=== PATIENT | male | born 1955 | race Caucasian/White ===

== ENCOUNTER 2016-09-19 13:42 | Emergency (ER) | payer OTHER ==
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
[2016-09-19] MEDS ORDERED: Polymyx/Trimethoprim OPTH* 10 ML BTL RIGHT EYE ONE (15:03)
[2016-09-19 15:14] VITALS: BP 131/98
== END 2016-09-19 15:13 | disposition home or self-care (01) ==
LOC: ED 13:42
DX: T15.91XA Foreign body on external eye, part unspecified, right eye, initial encounter (principal); X58.XXXA Exposure to other specified factors, initial encounter; Y93.9 Activity, unspecified; Y92.9 Unspecified place or not applicable; Y99.9 Unspecified external cause status
CPT/HCPCS: 99282

== ENCOUNTER 2018-12-14 10:17 | Emergency (ER) | payer OTHER ==
[2018-12-14 10:38] VITALS: BP 133/81
--- NOTE | 2018-12-14 11:04 | UC ---
Lower Extremity/Ankle HPI - HPI Summary HPI Summary: R large toe pain after heavy item made of metal dropped onto foot last night. It started to bleed, he is on plavix. When he awoke today it was more painful and swollen with a blood blister. denies heel pain, fever. tetanus was given approx 10yrs ago - History of Current Complaint Chief Complaint: UCUpperExtremity Stated Complaint: FOOT COMPLAINT Time Seen by Provider: 12/14/18 10:59 Hx Obtained From: Patient Pain Intensity: 4 Pain Scale Used: 0-10 Numeric Aggravating Factor(s): Nothing Alleviating Factor(s): Nothing - Allergies/Home Medications Allergies/Adverse Reactions: Allergies Allergy/AdvReac Type Severity Reaction Status Date / Time No Known Allergies Allergy Verified 12/14/18 10:38 PMH/Surg Hx/FS Hx/Imm Hx Previously Healthy: Yes Cardiovascular History: Cardiac Disease GI/ History: Gastroesophageal Reflux - Surgical History Surgical History: Yes Surgery Procedure, Year, and Place: POLYPECTOMY - 2 BENIGN POLYS REMOVED IN 2007. TONSILLECTOMY 1966. 2 stents - Family History Known Family History: Positive: Cardiac Disease - Social History Alcohol Use: None Substance Use Type: None Smoking Status (MU): Former Smoker Type: Cigarettes Amount Used/How Often: 1ppd Length of Time of Smoking/Using Tobacco: 20yrs Have You Smoked in the Last Year: No When Did the Patient Quit Smoking/Using Tobacco: 2.5 years ago - Immunization History Most Recent Influenza Vaccination: FEB 2014 Most Recent Tetanus Shot: UP TO DATE Most Recent Pneumonia Vaccination: NEVER Review of Systems All Other Systems Reviewed And Are Negative: Yes Constitutional: Negative: Fever Skin: Negative: Rash Musculoskeletal: Positive: Arthralgia - R toe Neurological: Negative: Weakness, Paresthesia, Numbness Physical Exam Triage Information Reviewed: Yes Appearance: Well-Appearing Vital Signs: Initial Vital Signs Temp 98.9 F 12/14/18 10:33 Pulse 104 12/14/18 10:33 Resp 18 12/14/18 10:33 BP 133/81 12/14/18 10:33 Pulse Ox 100 12/14/18 10:33 Vital Signs Reviewed: Yes Respiratory Exam: Normal Cardiovascular Exam: Normal Musculoskeletal: Positive: Edema @ - R large toe Neurological: Positive: Alert Skin: Positive: Other - R large toe hematoma, open areas at base of nail bed Diagnostics - Radiology No standard instances Radiology Interpretation Completed By: Radiologist Summary of Radiographic Findings: REPORT AND IMPRESSION: #. Mildly comminuted transverse fracture through the tuft of the distal phalanx with up. to 0.2 cm distal and plantar displacement. Overlying soft tissue swelling without. conspicuous subcutaneous emphysema. #. Normal articular alignment. Lower Extremity Course/Dx - Course Course Of Treatment: R large toe pain after having heavy metal object fall on it. Pt. reports pain thats relieved by tylenol, declined anything stronger. on xray REPORT AND IMPRESSION: #. Mildly comminuted transverse fracture through the tuft of the distal phalanx with up to 0.2 cm distal and plantar displacement. Overlying soft tissue swelling without conspicuous subcutaneous emphysema. #. Normal articular alignment. Reviewed case with Dr. Osei and it was suggested pt be seen on Sun. We were able to clean wounds, achieve hemostasis, apply a betadine dressing, antibx rx' d and foot placed in post op shoe. vascularly intact, no neuro deficits. Tetanus given today. - Differential Dx/Diagnosis Differential Diagnosis/HQI/PQRI: Contusion, Dislocation, Fracture (Closed), Subungual Hematoma Provider Diagnosis: Comminuted fracture Discharge - Sign-Out/Discharge Documenting (check all that apply): Patient Departure All imaging exams completed and their final reports reviewed: Yes - Discharge Plan Condition: Good Disposition: HOME Prescriptions: Cephalexin CAP* [Keflex CAP*] 500 mg PO BID 10 Days #20 cap Patient Education Materials: Toe Fracture (ED) Referrals: Scot Osei MD [Medical Doctor] - Additional Instructions: Please call ORTHOPEDICS on Sunday - Billing Disposition and Condition Condition: GOOD Disposition: Home
[2018-12-14] MEDS ORDERED: Tetan/Diph/Pertus SYR(Tdap)* 0.5 ML SYR(BOOSTRIX) use SYR contains LATEX IM ONE (12:21)
== END 2018-12-14 12:46 | disposition home or self-care (01) ==
LOC: UCEAST 10:17
DX: S92.421A Displaced fracture of distal phalanx of right great toe, initial encounter for closed fracture (principal); W22.8XXA Striking against or struck by other objects, initial encounter; Y92.9 Unspecified place or not applicable; K21.9 Gastro-esophageal reflux disease without esophagitis; Z87.891 Personal history of nicotine dependence
CPT/HCPCS: 90715; 99213; G0463